=== PATIENT | female | born 1970 | race Caucasian/White ===

== ENCOUNTER 2018-01-09 15:11 | Observation (INO) | payer BC, OTHER ==
[~2018-01-09] VITALS: Ht 175.3 cm; Wt 63.6 kg
[~2018-01-09 15:11] MED LIST: ADDE10XR PO
[2018-01-09 15:12] VITALS: BP 171/88; PULSE 87; RESP 18; TEMP 97.5; O2SAT 99
--- NOTE | 2018-01-09 17:37 | PD ---
HPI Chief Complaint: Abdominal Pain Time Seen by Provider: 17:37 Travel History International Travel<30 days: No Contact w/Intl Traveler<30days: No Traveled to known affect area: No History of Present Illness HPI 47-year-old female presents to emergency department for evaluation of acute onset right lower quadrant pain around 2 PM today. Patient states it is sharp, stabbing, constant. Severe in nature. It does not radiate anywhere. It is worse with walking or movement. She has not been recently ill. No fever or chills. No diarrhea, nausea, or vomiting. She has no urinary symptoms to report. She has no other symptoms to report. 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) Hepatitis: No Hiatal Hernia: No Hypertension: Yes (IN PAST--NOT PRESENTLY BEING MEDICATED) Immune Disorder: No Kidney Stones: Yes (LITHROTRPSIE) Musculoskeletal: No Neurologic: No Psychiatric: Yes (ANXIETY) Reproductive: No Respiratory: No ?: Not : 2 Para: 2 Past Surgical History Abdominal Surgery: No AICD: No Arteriovenous Shunt: No Body Medical Devices: NONE Cardiac Surgery: No Section: Yes Ear Surgery: No Endocrine Surgery: No Eye Surgery: Yes (LIANA EYE SURGERY-REMMOVAL FAT PADS) Genitourinary Surgery: Yes (HX OF LITHOTRIPSY) Gynecologic Surgery: Yes (ENDOMETRIAL ABLATION 2007, CSECTION) Hysterectomy: Yes Insulin Pump: No Joint Replacement: No Oral Surgery: No Pacemaker: No Thoracic Surgery: No Other Surgery: Yes (C=SECTION 3/O2) Social History Alcohol Use: Yes (OCCASIONAL) Tobacco Use: No Substance Use: No Allergies-Medications (Allergen,Severity, Reaction): Coded Allergies: morphine (Verified Allergy, Severe, ITCING, 01/09/18) potassium iodide (Verified Allergy, Severe, ILEUS, 01/09/18) povidone-iodine (Verified Allergy, Severe, ILEUS, 01/09/18) sodium iodide (Verified Allergy, Severe, ILEOUS STOP, 01/09/18) diatrizoate meglumine (Verified Allergy, Intermediate, ileus, 01/09/18) iodixanol (Verified Allergy, Intermediate, ileus, 01/09/18) prednisone (Verified Allergy, Intermediate, SOB, 01/09/18) erythromycin base (Verified Adverse Reaction, Severe, Nausea/Vomiting, 01/09) iodine (Verified Adverse Reaction, Severe, ILEUS STOP, 01/09/18) sodium iodide (Verified Adverse Reaction, Severe, ILEUS, 01/09/18) gadobenic acid (Verified Adverse Reaction, Intermediate, ileus, 01/09/18) gadodiamide (Verified Adverse Reaction, Intermediate, ileus, 01/09/18) gadoteridol (Verified Adverse Reaction, Intermediate, ileus, 01/09/18) iohexol (Verified Adverse Reaction, Intermediate, ileus, 01/09/18) Reported Meds & Prescriptions Reported Meds & Active Scripts Active Reported Adderall (Amphetamine-Dextroamphetamine) 10 Mg Tab 10 Mg PO DAILY Avoid late evening doses. Space doses at least 4 to 6 hours if more than once/day dosing. Losartan (Losartan Potassium) 50 Mg Tab 50 Mg PO DAILY Review of Systems Except as stated in HPI: all other systems reviewed are Neg Physical Exam Narrative GENERAL: Well-nourished female patient in no acute distress. SKIN: Focused skin assessment warm/dry. HEAD: Atraumatic. Normocephalic. EYES: Pupils equal and round. No scleral icterus. No injection or drainage. ENT: No nasal bleeding or discharge. Mucous membranes pink and moist. NECK: Trachea midline. No JVD. CARDIOVASCULAR: Regular rate and rhythm. No murmur appreciated. RESPIRATORY: No accessory muscle use. Clear to auscultation. Breath sounds equal bilaterally. GASTROINTESTINAL: Abdomen soft, nondistended. Right lower quadrant tenderness to palpation with moderate guarding. Hepatic and splenic margins not palpable. MUSCULOSKELETAL: No obvious deformities. No clubbing. No cyanosis. No edema. NEUROLOGICAL: Awake and alert. No obvious cranial nerve deficits. Motor grossly within normal limits. Normal speech. PSYCHIATRIC: Appropriate mood and affect; insight and judgment normal. Data Data Last Documented VS Vital Signs Date Time Temp Pulse Resp B/P (MAP) Pulse Ox O2 Delivery O2 Flow Rate FiO2 01/09/18 22:22 16 01/09/18 20:59 98.5 70 143/89 (107) 99 Room Air Orders Orders Complete Blood Count With Diff (01/09/18 15:50) Comprehensive Metabolic Panel (01/09/18 15:50) Lipase (01/09/18 15:50) Prothrombin Time / Inr (Pt) (01/09/18 15:50) Act Partial Throm Time (Ptt) (01/09/18 15:50) Urinalysis - C+S If Indicated (01/09/18 15:50) Iv Access Insert/Monitor (01/09/18 17:39) Ondansetron Inj (Zofran Inj) (01/09/18 18:00) Sodium Chlor 0.9% 1000 Ml Inj (Ns 1000 M (01/09/18 18:00) Ct Abd/Pel W/O Iv Contrast (01/09/18 ) Hydromorphone Pf Inj (Dilaudid Pf Inj) (01/09/18 18:00) Oral Contrast - Adult (01/09/18 17:59) Diatrizoate Liq ( Gastroview Liq) (01/09/18 18:04) Diatrizoate Liq ( Gastromohamud Liq) (01/09/18 18:04) Urine Culture (01/09/18 18:15) Hydromorphone Pf Inj (Dilaudid Pf Inj) (01/09/18 19:45) Hydromorphone Pf Inj (Dilaudid Pf Inj) (01/09/18 20:30) Ketorolac Inj (Toradol Inj) (01/09/18 20:45) Admit To Inpatient (01/09/18 ) Vital Signs (Adult) Q4H (01/09/18 22:35) Activity Oob With Assistance (01/09/18 22:35) Diet Npo (01/10/18 Breakfast) Sodium Chlor 0.9% 1000 Ml Inj (Ns 1000 M (01/09/18 22:35) Sodium Chloride 0.9% Flush (Ns Flush) (01/09/18 22:45) Sodium Chloride 0.9% Flush (Ns Flush) (01/10/18 09:00) Ondansetron Inj (Zofran Inj) (01/09/18 22:45) Basic Metabolic Panel (Bmp) (01/10/18 06:00) Complete Blood Count With Diff (01/10/18 06:00) Scd Bilateral/Knee High SOFIA.BID (01/09/18 22:35) Alan Bilateral/Knee High SOFIA.QSHIFT (01/09/18 22:35) Naloxone Inj (Narcan Inj) (01/09/18 22:45) Magnesium Hydroxide Liq (Milk Of Magnesi (01/09/18 22:45) Sennosides (Senokot) (01/09/18 22:45) Bisacodyl Supp (Dulcolax Supp) (01/09/18 22:45) Inpatient Certification (01/09/18 ) Hydromorphone Pf Inj (Dilaudid Pf Inj) (01/09/18 23:00) Place In Observation (01/09/18 ) Consult General Surgery (01/09/18 ) Losartan (Cozaar) (01/10/18 09:00) Admit Order (Ed Use Only) (01/09/18 23:19) Labs Laboratory Tests Test 01/09/18 18:10 01/09/18 18:15 White Blood Count 8.1 TH/MM3 Red Blood Count 4.38 MIL/MM3 Hemoglobin 14.3 GM/DL Hematocrit 40.6 % Mean Corpuscular Volume 92.6 FL Mean Corpuscular Hemoglobin 32.6 PG Mean Corpuscular Hemoglobin Concent 35.2 % Red Cell Distribution Width 12.3 % Platelet Count 327 TH/MM3 Mean Platelet Volume 8.0 FL Neutrophils (%) (Auto) 67.5 % Lymphocytes (%) (Auto) 22.8 % Monocytes (%) (Auto) 8.7 % Eosinophils (%) (Auto) 0.4 % Basophils (%) (Auto) 0.6 % Neutrophils # (Auto) 5.5 TH/MM3 Lymphocytes # (Auto) 1.8 TH/MM3 Monocytes # (Auto) 0.7 TH/MM3 Eosinophils # (Auto) 0.0 TH/MM3 Basophils # (Auto) 0.0 TH/MM3 CBC Comment DIFF FINAL Differential Comment Prothrombin Time 10.5 SEC Prothromb Time International Ratio 1.0 RATIO Activated Partial Thromboplast Time 25.6 SEC Blood Urea Nitrogen 13 MG/DL Creatinine 0.77 MG/DL Random Glucose 86 MG/DL Total Protein 7.1 GM/DL Albumin 4.0 GM/DL Calcium Level 9.1 MG/DL Alkaline Phosphatase 95 U/L Aspartate Amino Transf (AST/SGOT) 14 U/L Alanine Aminotransferase (ALT/SGPT) 15 U/L Total Bilirubin 0.6 MG/DL Sodium Level 138 MEQ/L Potassium Level 4.2 MEQ/L Chloride Level 106 MEQ/L Carbon Dioxide Level 25.7 MEQ/L Anion Gap 6 MEQ/L Estimat Glomerular Filtration Rate 80 ML/MIN Lipase 144 U/L Urine Color LIGHT-YELLOW Urine Turbidity HAZY Urine pH 5.0 Urine Specific [place] 1.005 Urine Protein NEG mg/dL Urine Glucose (UA) NEG mg/dL Urine Ketones NEG mg/dL Urine Occult Blood NEG Urine Nitrite NEG Urine Bilirubin NEG Urine Urobilinogen LESS THAN 2.0 MG/DL Urine Leukocyte Esterase NEG Urine RBC 1 /hpf Urine WBC 1 /hpf Urine Squamous Epithelial Cells 15 /hpf Urine Bacteria MOD /hpf Urine Hyaline Casts 1 /lpf Urine Mucus FEW /lpf Microscopic Urinalysis Comment CULTURE INDICATED MDM Medical Decision Making Medical Screen Exam Complete: Yes Emergency Medical Condition: Yes Medical Record Reviewed: Yes Differential Diagnosis Appendicitis versus colitis versus cystitis versus ovarian cyst Narrative Course 47-year-old female presents to emergency department for evaluation of right lower quadrant pain, acute onset at 2 PM today. Physical exam is concerning for appendicitis. Patient is allergic to IV contrast. She is given oral contrast for examination. Lab work is ordered and patient is treated for pain. Laboratory Tests Test 01/09/18 18:10 01/09/18 18:15 White Blood Count 8.1 TH/MM3 Red Blood Count 4.38 MIL/MM3 Hemoglobin 14.3 GM/DL Hematocrit 40.6 % Mean Corpuscular Volume 92.6 FL Mean Corpuscular Hemoglobin 32.6 PG Mean Corpuscular Hemoglobin Concent 35.2 % Red Cell Distribution Width 12.3 % Platelet Count 327 TH/MM3 Mean Platelet Volume 8.0 FL Neutrophils (%) (Auto) 67.5 % Lymphocytes (%) (Auto) 22.8 % Monocytes (%) (Auto) 8.7 % Eosinophils (%) (Auto) 0.4 % Basophils (%) (Auto) 0.6 % Neutrophils # (Auto) 5.5 TH/MM3 Lymphocytes # (Auto) 1.8 TH/MM3 Monocytes # (Auto) 0.7 TH/MM3 Eosinophils # (Auto) 0.0 TH/MM3 Basophils # (Auto) 0.0 TH/MM3 CBC Comment DIFF FINAL Differential Comment Prothrombin Time 10.5 SEC Prothromb Time International Ratio 1.0 RATIO Activated Partial Thromboplast Time 25.6 SEC Blood Urea Nitrogen 13 MG/DL Creatinine 0.77 MG/DL Random Glucose 86 MG/DL Total Protein 7.1 GM/DL Albumin 4.0 GM/DL Calcium Level 9.1 MG/DL Alkaline Phosphatase 95 U/L Aspartate Amino Transf (AST/SGOT) 14 U/L Alanine Aminotransferase (ALT/SGPT) 15 U/L Total Bilirubin 0.6 MG/DL Sodium Level 138 MEQ/L Potassium Level 4.2 MEQ/L Chloride Level 106 MEQ/L Carbon Dioxide Level 25.7 MEQ/L Anion Gap 6 MEQ/L Estimat Glomerular Filtration Rate 80 ML/MIN Lipase 144 U/L Urine Color LIGHT-YELLOW Urine Turbidity HAZY Urine pH 5.0 Urine Specific [place] 1.005 Urine Protein NEG mg/dL Urine Glucose (UA) NEG mg/dL Urine Ketones NEG mg/dL Urine Occult Blood NEG Urine Nitrite NEG Urine Bilirubin NEG Urine Urobilinogen LESS THAN 2.0 MG/DL Urine Leukocyte Esterase NEG Urine RBC 1 /hpf Urine WBC 1 /hpf Urine Squamous Epithelial Cells 15 /hpf Urine Bacteria MOD /hpf Urine Hyaline Casts 1 /lpf Urine Mucus FEW /lpf Microscopic Urinalysis Comment CULTURE INDICATED Lab work is reviewed and without acute concern. Initial CT image was negative, but after discussing with my attending and his review of the film, he discussed with radiologist who with amended report of the abdomen and pelvis to reveal Early/mild acute appendicitis possible in the proper clinical setting. Otherwise negative CT of the abdomen and pelvis. I discussed with my attending who recommends observation admission. Patient will be admitted observation to [facility] for observation. Consult will need to be placed to Gen. surgery. Diagnosis Primary Impression: Unspecified appendicitis Qualified Codes: K35.80 - Unspecified acute appendicitis Admitting Information Admitting Physician Requests: Observation Condition: Stable HaywardDee membreno SARAH Jan 09, 2018 17:37
[2018-01-09] MEDS ORDERED: ADDE10 PO (18:00)
[2018-01-09] MEDS ORDERED: SODIUM CHLOR 0.9% 1000 ML INJ 1,000 ML IV ONE (18:00)
[2018-01-09] MEDS ORDERED: LOSA50TA PO (18:00)
[2018-01-09] MEDS ORDERED: HYDROmorphone HCL PF 2 MG/ML VIAL IV PUSH ONE ×2 (18:00→20:30)
[2018-01-09] MEDS ORDERED: ONDANSETRON HCL 4 MG/2 ML VIAL IV PUSH ONE (18:00)
[2018-01-09 18:02] VITALS: BP 150/83; PULSE 84; RESP 16; TEMP 97.8; O2SAT 98
[2018-01-09] MEDS ORDERED: DIATRIZOATE MEGLUM/DIATRIZOATE SOD 9 ML CUP ONE ×2 (18:04)
[2018-01-09 18:43] LABS: AUTOMATED NEUTROPHIL # 5.5 TH/MM3 (1.8-7.7); BASOPHIL % 0.6 % (0.0-2.0); EOSINOPHIL % 0.4 % (0.0-4.0); HEMATOCRIT 40.6 % (35.0-46.0); HEMOGLOBIN 14.3 GM/DL (11.6-15.3); LYMPH % 22.8 % (9.0-44.0); LYMPHOCYTE # 1.8 TH/MM3 (1.0-4.8); MEAN CELL VOLUME 92.6 FL (80.0-100.0); MEAN CORPUSCULAR HEMOGLOBIN 32.6 PG (27.0-34.0); MEAN CORPUSCULAR HGB CONC 35.2 % (32.0-36.0); MONO % 8.7 % (0.0-8.0); MONOCYTE # 0.7 TH/MM3 (0-0.9); NEUT % 67.5 % (16.0-70.0); PLATELET COUNT 327 TH/MM3 (150-450); RED BLOOD COUNT 4.38 MIL/MM3 (4.00-5.30); RED CELL DISTRIBUTION WIDTH 12.3 % (11.6-17.2); WHITE BLOOD COUNT 8.1 TH/MM3 (4.0-11.0)
[2018-01-09 18:54] LABS: AST (GOT) 14 U/L (15-37); BICARBONATE 25.7 MEQ/L (21.0-32.0); BLOOD UREA NITROGEN 13 MG/DL (7-18); CALCIUM 9.1 MG/DL (8.5-10.1); CHLORIDE 106 MEQ/L (98-107); CREATININE 0.77 MG/DL (0.50-1.00); GLOMERULAR FILTRATION RATE 80 ML/MIN (>89); GLUCOSE,RANDOM 86 MG/DL (74-106); SODIUM (NA) 138 MEQ/L (136-145)
[2018-01-09 18:55] LABS: PROTHROMBIN TIME - PATIENT 10.5 SEC (9.8-11.6)
[2018-01-09 18:58] LABS: ALKALINE PHOSPHATASE 95 U/L (45-117); ALT (GPT) 15 U/L (10-53); TOTAL BILIRUBIN ADULT 0.6 MG/DL (0.2-1.0); TOTAL PROTEIN 7.1 GM/DL (6.4-8.2)
[2018-01-09 19:06] LABS: BACTERIA, URINE MOD /hpf; BILIRUBIN, URINE NEG (NEG); BLOOD, URINE NEG (NEG); GLUCOSE,URINE NEG (NEG); HYALINE CAST, URINE 1 /lpf (RARE); KETONE, URINE NEG (NEG); MUCUS URINE FEW /lpf (OCC); NITRITE,URINE NEG (NEG); SQUAMOUS EPITHELIAL CELL URINE 15 /hpf (0-5); URINE COLOR LIGHT-YELLOW (YELLW/STRAW); URINE LEUKOCYTE ESTERASE NEG (NEG)
[2018-01-09] MEDS ORDERED: HYDROmorphone HCL PF 1 MG/ML VIAL IV PUSH ONE (19:45)
--- NOTE | 2018-01-09 20:30 | RADRPT ---
EXAM DATE/TIME: 01/09/2018 19:58 CORRECTION Corrected on: January 09, 2018; [place] COMPARISON: No previous studies available for comparison. INDICATIONS : Right sided abdomen pain. ORAL CONTRAST: Prescribed oral contrast ingested. RADIATION DOSE: 11.03 CTDIvol (mGy) MEDICAL HISTORY : Renal calculi. Hypertension. SURGICAL HISTORY : section. ENCOUNTER: Initial ACUITY: 1 day PAIN SCALE: 9/10 LOCATION: Right lower quadrant abdomen TECHNIQUE: Volumetric scanning of the abdomen and pelvis was performed. Using automated exposure control and ad justment of the mA and/or kV according to patient size, radiation dose was kept as low as reasonably achievable to obtain optimal diagnostic quality images. DICOM format image data is available electro nically for review and comparison. FINDINGS: LOWER LUNGS: 5 mm benign granuloma left lower lobe. LIVER: Homogeneous density without lesion. There is no dilation of the biliary tree. No calcified gallston es. SPLEEN: Normal size without lesion. PANCREAS: Within normal limits. KIDNEYS: Normal in size and shape. There is no mass, stone, or hydronephrosis. ADRENAL GLANDS: Within normal limits. VASCULAR: There is no aortic aneurysm. BOWEL/MESENTERY: The stomach, small bowel, and colon demonstrate no acute abnormality. There is no free intraperitone al air or fluid. The distal wall of the appendix is slightly thickened and indistinct, for example se arnold 2 image 71.. ABDOMINAL WALL: Within normal limits. RETROPERITONEUM: There is no lymphadenopathy. BLADDER: No wall thickening or mass. REPRODUCTIVE: Within normal limits. INGUINAL: There is no lymphadenopathy or hernia. MUSCULOSKELETAL: Within normal limits for patient age. CONCLUSION: Early/mild acute appendicitis possible in the proper clinical setting. Discussed with Dr. Leonard b y phone. Otherwise negative CT of the abdomen and pelvis. Landon Mcdonald MD on January 09, 2018 at 20:26 Board Certified Radiologist. This report was verified electronically. Landon Mcdonald MD on January 09, 2018 at 20:37 Board Certified Radiologist. This report was verified electronically.
[2018-01-09] MEDS ORDERED: KETOROLAC TROMETHAMINE 30 MG/ML (IVP) VIAL IV PUSH ONE (20:45)
[2018-01-09 20:59] VITALS: BP 143/89; PULSE 70; RESP 16; TEMP 98.5; O2SAT 99
[2018-01-09] MEDS ORDERED: SODIUM CHLORIDE 0.9% FLUSH 10 ML FLUSH IV FLUSH PRN (22:45)
[2018-01-09] MEDS ORDERED: SENNOSIDES 8.6 MG TAB PO PRN (22:45)
[2018-01-09] MEDS ORDERED: NALOXONE HCL 0.4 MG/ML AMP IV PUSH PRN (22:45)
[2018-01-09] MEDS ORDERED: MAGNESIUM HYDROXIDE SUSP 30 ML CUP PO PRN (22:45)
[2018-01-09] MEDS ORDERED: BISACODYL 10 MG SUPP RECTAL PRN (22:45)
[2018-01-09] MEDS ORDERED: ONDANSETRON HCL 4 MG/2 ML VIAL IVP PRN (22:45)
[2018-01-09] MEDS ORDERED: HYDROmorphone HCL PF 2 MG/ML VIAL IV PUSH PRN (23:00)
--- NOTE | 2018-01-09 23:18 | HHI.HP ---
[facility] Daren Perez M.D. Admission Diagnosis Diagnoses: Travel History International Travel<30 Days: No Contact w/Intl Traveler <30 Da: No Traveled to Known Affected Are: No History of Present Illness 47-year-old female with past medical history significant for hypertension and ADHD presents to the emergency department with chief complaint of sudden onset, stabbing right lower quadrant pain. The patient reports she was in her usual state of health while at work this afternoon when suddenly she had a stabbing pain through the right lower quadrant of her abdomen. She endorses associated nausea and dry heaves. Endorses fevers and chills. Positive diaphoresis. Denies dizziness, lightheadedness, shortness of breath or chest pain. Review of Systems Except as stated in HPI: all other systems reviewed are Neg Past Family Social History Past Medical History Hypertension ADHD Past Surgical History Partial hysterectomy Lithotripsy Reported Medications Reported Meds & Active Scripts Active Reported Adderall (Amphetamine-Dextroamphetamine) 10 Mg Tab 10 Mg PO DAILY Avoid late evening doses. Space doses at least 4 to 6 hours if more than once/day dosing. Losartan (Losartan Potassium) 50 Mg Tab 50 Mg PO DAILY Allergies: Coded Allergies: morphine (Verified Allergy, Severe, ITCING, 01/09/18) potassium iodide (Verified Allergy, Severe, ILEUS, 01/09/18) povidone-iodine (Verified Allergy, Severe, ILEUS, 01/09/18) sodium iodide (Verified Allergy, Severe, ILEOUS STOP, 01/09/18) diatrizoate meglumine (Verified Allergy, Intermediate, ileus, 01/09/18) iodixanol (Verified Allergy, Intermediate, ileus, 01/09/18) prednisone (Verified Allergy, Intermediate, SOB, 01/09/18) erythromycin base (Verified Adverse Reaction, Severe, Nausea/Vomiting, 01/09) iodine (Verified Adverse Reaction, Severe, ILEUS STOP, 01/09/18) sodium iodide (Verified Adverse Reaction, Severe, ILEUS, 01/09/18) gadobenic acid (Verified Adverse Reaction, Intermediate, ileus, 01/09/18) gadodiamide (Verified Adverse Reaction, Intermediate, ileus, 01/09/18) gadoteridol (Verified Adverse Reaction, Intermediate, ileus, 01/09/18) iohexol (Verified Adverse Reaction, Intermediate, ileus, 01/09/18) Family History Father with diabetes mellitus and coronary artery disease. Social History Occasional alcohol. Denies tobacco and illicit drugs. Physical Exam Vital Signs Vital Signs Date Time Temp Pulse Resp B/P (MAP) Pulse Ox O2 Delivery O2 Flow Rate FiO2 01/09/18 22:22 16 01/09/18 20:59 98.5 70 16 143/89 (107) 99 Room Air 01/09/18 18:02 16 01/09/18 18:02 97.8 84 16 150/83 (105) 98 Room Air 01/09/18 15:12 97.5 87 18 171/88 (115) 99 Room Air Physical Exam GENERAL: female sitting up in bed SKIN: No rashes, ecchymoses or lesions. Cool and dry. HEAD: Atraumatic. Normocephalic. No temporal or scalp tenderness. EYES: Pupils equal round and reactive. Extraocular motions intact. No scleral icterus. No injection or drainage. ENT: Nose without bleeding, purulent drainage or septal hematoma. Throat without erythema, tonsillar hypertrophy or exudate. Uvula midline. Airway patent. NECK: Trachea midline. No JVD or lymphadenopathy. Supple, nontender, no meningeal signs. CARDIOVASCULAR: Regular rate and rhythm without murmurs, gallops, or rubs. RESPIRATORY: Clear to auscultation. Breath sounds equal bilaterally. No wheezes , rales, or rhonchi. GASTROINTESTINAL: Abdomen soft, exquisitely tender to palpation in the right lower quadrant. No rebound tenderness. MUSCULOSKELETAL: Extremities without clubbing, cyanosis, or edema. No joint tenderness, effusion, or edema noted. No calf tenderness. Negative Rovsing sign. NEUROLOGICAL: Awake and alert. Cranial nerves II through XII intact. Motor and sensory grossly within normal limits. Normal speech. Laboratory Laboratory Tests Test 01/09/18 18:10 01/09/18 18:15 White Blood Count 8.1 Red Blood Count 4.38 Hemoglobin 14.3 Hematocrit 40.6 Mean Corpuscular Volume 92.6 Mean Corpuscular Hemoglobin 32.6 Mean Corpuscular Hemoglobin Concent 35.2 Red Cell Distribution Width 12.3 Platelet Count 327 Mean Platelet Volume 8.0 Neutrophils (%) (Auto) 67.5 Lymphocytes (%) (Auto) 22.8 Monocytes (%) (Auto) 8.7 Eosinophils (%) (Auto) 0.4 Basophils (%) (Auto) 0.6 Neutrophils # (Auto) 5.5 Lymphocytes # (Auto) 1.8 Monocytes # (Auto) 0.7 Eosinophils # (Auto) 0.0 Basophils # (Auto) 0.0 CBC Comment DIFF FINAL Differential Comment Prothrombin Time 10.5 Prothromb Time International Ratio 1.0 Activated Partial Thromboplast Time 25.6 Blood Urea Nitrogen 13 Creatinine 0.77 Random Glucose 86 Total Protein 7.1 Albumin 4.0 Calcium Level 9.1 Alkaline Phosphatase 95 Aspartate Amino Transf (AST/SGOT) 14 Alanine Aminotransferase (ALT/SGPT) 15 Total Bilirubin 0.6 Sodium Level 138 Potassium Level 4.2 Chloride Level 106 Carbon Dioxide Level 25.7 Anion Gap 6 Estimat Glomerular Filtration Rate 80 Lipase 144 Urine Color LIGHT-YELLOW Urine Turbidity HAZY Urine pH 5.0 Urine Specific [place] 1.005 Urine Protein NEG Urine Glucose (UA) NEG Urine Ketones NEG Urine Occult Blood NEG Urine Nitrite NEG Urine Bilirubin NEG Urine Urobilinogen LESS THAN 2.0 Urine Leukocyte Esterase NEG Urine RBC 1 Urine WBC 1 Urine Squamous Epithelial Cells 15 Urine Bacteria MOD Urine Hyaline Casts 1 Urine Mucus FEW Microscopic Urinalysis Comment CULTURE INDICATED Date/Time Source Procedure Growth Status 01/09/18 18:15 Urine Random Urine Urine Culture Pending Received Result Diagram: 01/09/18180901/09/181809 Caprini VTE Risk Assessment Caprini VTE Risk Assessment: No/Low Risk (score <= 1) Caprini Risk Assessment Model Point Value = 1 Point Value = 2 Point Value = 3 Point Value = 5 Age 41-60 Minor surgery BMI > 25 kg/m2 Swollen legs Varicose veins or History of unexplained or recurrent spontaneous Oral contraceptives or hormone replacement Sepsis (< 1 month) Serious lung disease, including pneumonia (< 1 month) Abnormal pulmonary function Acute myocardial infarction Congestive heart failure (< 1 month) History of inflammatory bowel disease Medical patient at bed rest Age 61-74 Arthroscopic surgery Major open surgery (> 45 min) Laparoscopic surgery (> 45 min) Malignancy Confined to bed (> 72 hours) Immobilizing plaster cast Central venous access Age >= 75 History of VTE Family history of VTE Factor V Leiden Prothrombin [id number] Lupus anticoagulant Anticardiolipin antibodies Elevated serum homocysteine Heparin-induced thrombocytopenia Other congenital or acquired thrombophilia Stroke (< 1 month) Elective arthroplasty Hip, pelvis, or leg fracture Acute spinal cord injury (< 1 month) Prophylaxis Regimen Total Risk Factor Score Risk Level Prophylaxis Regimen 0-1 Low Early ambulation 2 Moderate Order ONE of the following: *Sequential Compression Device (SCD) *Heparin 5000 units SQ BID 3-4 Higher Order ONE of the following medications: *Heparin 5000 units SQ TID *Enoxaparin/Lovenox 40 mg SQ daily (WT < 150 kg, CrCl > 30 mL/min) *Enoxaparin/Lovenox 30 mg SQ daily (WT < 150 kg, CrCl > 10-29 mL/min) *Enoxaparin/Lovenox 30 mg SQ BID (WT < 150 kg, CrCl > 30 mL/min) AND/OR *Sequential Compression Device (SCD) 5 or more Highest Order ONE of the following medications: *Heparin 5000 units SQ TID (Preferred with Epidurals) *Enoxaparin/Lovenox 40 mg SQ daily (WT < 150 kg, CrCl > 30 mL/min) *Enoxaparin/Lovenox 30 mg SQ daily (WT < 150 kg, CrCl > 10-29 mL/min) *Enoxaparin/Lovenox 30 mg SQ BID (WT < 150 kg, CrCl > 30 mL/min) AND *Sequential Compression Device (SCD) Assessment and Plan Assessment and Plan Assessment/plan: 1. Early appendicitis CT of the abdomen and pelvis significant for possible early acute appendicitis Dilaudid for pain Nothing by mouth General surgery consulted, appreciate recommendations 2. Hypertension Continue home losartan FEN Nothing by mouth NS at 100 cc/hour Electrolytes: Monitor and replete when necessary Ambulation Physician Certification 2 Midnight Certification Type: Admission for Inpatient Services Order for Inpatient Services The services are ordered in accordance with Medicare regulations or non- Medicare payer requirements, as applicable. In the case of services not specified as inpatient-only, they are appropriately provided as inpatient services in accordance with the 2-midnight benchmark. Estimated LOS (days): 2 2 days is the estimated time the patient will need to remain in the hospital, assuming treatment plan goals are met and no additional complications. Post-Hospital Plan: Not yet determined Roma Curiel MD Jan 09, 2018 23:18
[2018-01-09] MEDS: SODIUM CHLOR 0.9% 1000 ML INJ 1,000 ML IV SCH (23:44)
[2018-01-10] VITALS (7 sets, daily range): BP systolic 114–149; BP diastolic 63–85; PULSE 58–87; RESP 16–18; TEMP 96.1–97.4; O2SAT 98–100
[2018-01-10] MEDS ORDERED: LACTATED RINGER'S 1000 ML IV PRN (00:15)
[2018-01-10] MEDS ORDERED: SODIUM CHLORID 0.9% 500 ML IV PRN (00:15)
[2018-01-10] MEDS ORDERED: CHLORHEXIDINE GLUCONATE 2 % 1 PACK (2 CLOTHS) TOPICAL PRN (00:15)
[2018-01-10 07:03] LABS: AUTOMATED NEUTROPHIL # 2.4 TH/MM3 (1.8-7.7); BASOPHIL % 0.9 % (0.0-2.0); EOSINOPHIL # 0.1 TH/MM3 (0-0.4); EOSINOPHIL % 1.3 % (0.0-4.0); HEMATOCRIT 37.5 % (35.0-46.0); HEMOGLOBIN 13.4 GM/DL (11.6-15.3); LYMPH % 34.3 % (9.0-44.0); LYMPHOCYTE # 1.6 TH/MM3 (1.0-4.8); MEAN CELL VOLUME 92.1 FL (80.0-100.0); MEAN CORPUSCULAR HEMOGLOBIN 32.9 PG (27.0-34.0); MEAN CORPUSCULAR HGB CONC 35.7 % (32.0-36.0); MEAN PLATELET VOLUME 8.2 FL (7.0-11.0); MONO % 12.8 % (0.0-8.0); MONOCYTE # 0.6 TH/MM3 (0-0.9); NEUT % 50.7 % (16.0-70.0); PLATELET COUNT 281 TH/MM3 (150-450); RED BLOOD COUNT 4.07 MIL/MM3 (4.00-5.30); RED CELL DISTRIBUTION WIDTH 12.4 % (11.6-17.2); WHITE BLOOD COUNT 4.7 TH/MM3 (4.0-11.0)
[2018-01-10 07:30] LABS: BICARBONATE 23.2 MEQ/L (21.0-32.0); CALCIUM 8.3 MG/DL (8.5-10.1); CREATININE 0.65 MG/DL (0.50-1.00)
[2018-01-10] MEDS: SODIUM CHLOR 0.9% 1000 ML INJ 1,000 ML IV SCH (09:23)
[2018-01-10] MEDS: SODIUM CHLORIDE 0.9% FLUSH 10 ML FLUSH IV FLUSH SCH ×2 (09:26→21:00)
[2018-01-10] MEDS: PIPERACIL-TAZO 3.375 GM PREMIX 50 ML IV SCH ×2 (10:00→19:38)
[2018-01-10] MEDS: LOSARTAN 50 MG TAB PO SCH (10:25)
[2018-01-10] MEDS ORDERED: ACETAMINOPHEN 325 MG TAB PO PRN (10:45)
[2018-01-10] MEDS ORDERED: DEXTROSE 5%-LACTATED RING INJ 1,000 ML IV SCH (10:45)
[2018-01-10] MEDS ORDERED: POTASSIUM CHLOR 10 MEQ PREMIX 100 ML IV ONE (10:45)
--- NOTE | 2018-01-10 10:46 | HHI.PR ---
Subjective Remarks Patient says that right lower quadrant abdominal pain continues. She refuses any narcotics. Says she has a headache which is common when she misses meals. Objective Vital Signs Date Time Temp Pulse Resp B/P (MAP) Pulse Ox O2 Delivery O2 Flow Rate FiO2 01/10/18 08:00 96.1 72 18 123/77 (92) 98 01/10/18 04:40 97.4 71 16 121/73 (89) 99 01/10/18 00:10 96.9 66 17 149/84 (105) 100 01/10/18 00:03 01/09/18 22:22 16 01/09/18 20:59 98.5 70 16 143/89 (107) 99 Room Air 01/09/18 18:02 16 01/09/18 18:02 97.8 84 16 150/83 (105) 98 Room Air 01/09/18 15:12 97.5 87 18 171/88 (115) 99 Room Air I/O 01/09/18 01/09/18 01/09/18 01/10/18 01/10/18 01/10/18 07:00 15:00 23:00 07:00 15:00 23:00 Intake Total 1000 ml 0 ml Balance 1000 ml 0 ml Intake Oral 0 ml IV Total 1000 ml # Voids 1 # Bowel Movements 0 Result Diagram: 01/10/1860501/10/18 06 Objective Remarks GENERAL: Patient walking in room without difficulty. Appears uncomfortable. Alert and oriented 3. SKIN: Warm and dry. HEAD: Normocephalic. EYES: No scleral icterus. No injection or drainage. NECK: Supple, trachea midline. No JVD. CARDIOVASCULAR: Regular rate and rhythm without murmurs, gallops, or rubs. RESPIRATORY: Breath sounds equal bilaterally. No accessory muscle use. GASTROINTESTINAL: Abdomen soft. Right lower quadrant tenderness to palpation. MUSCULOSKELETAL: No cyanosis, or edema. BACK: Nontender without obvious deformity. No CVA tenderness. A/P Assessment and Plan //Early appendicitis CT of the abdomen and pelvis significant for possible early acute appendicitis Dilaudid for pain Nothing by mouth General surgery consulted, appreciate recommendations = We'll order by mouth Tylenol for after surgery. We'll start on fluids with dextrose. //Hypertension Continue home losartan FEN Nothing by mouth D5 LR at 100 cc/hour Electrolytes: Monitor and replete when necessary Ambulation Discharge Planning Pending surgical clearance. Priyank Brennan MD Jan 10, 2018 10:46
[2018-01-10] MEDS: ACETAMINOPHEN 1000 MG/100 ML 100 ML IV SCH ×2 (11:00→17:30)
--- NOTE | 2018-01-10 11:40 | PD.CONS ---
cc: Jeffery Mckenna MD [facility] Service General Surgery Consult Requested By Dr. Curiel Reason for Consult Early acute appendicitis Primary Care Physician Daren Perez M.D. History of Present Illness This is a 47-year-old female with a past medical history of hypertension, ADHD and kidney stones. The patient was working yesterday afternoon when she had a sudden onset of right lower quadrant abdominal pain. She reports the pain as stabbing-type pain 9 out of 10. She does report that she had some nausea, fevers or chills and was diaphoretic. The patient was brought to the Emergency Department where a CT abdomen and pelvis was obtained which is early acute appendicitis. She does have a normal white blood cell count. Her urinalysis was sent for culture. The patient has remained nothing by mouth. A General Surgery consultation has been requested for evaluation of laparoscopic appendectomy. Review of Systems Constitutional: COMPLAINS OF: Fever, Chills, DENIES: Fatigue, Dizziness, Change in appetite Endocrine: DENIES: Polydipsia, Polyuria, Polyphagia Eyes: DENIES: Diplopia, Eye inflammation Ears, nose, mouth, throat: DENIES: Hearing loss Respiratory: DENIES: Cough, Snoring Cardiovascular: DENIES: Chest pain, Palpitations Gastrointestinal: COMPLAINS OF: Abdominal pain, Nausea, DENIES: Vomiting Genitourinary: DENIES: Urinary incontinence Musculoskeletal: DENIES: Joint pain Integumentary: DENIES: Abnormal pigmentation Hematologic/lymphatic: DENIES: Bruising Immunologic/allergic: DENIES: Eczema Neurologic: DENIES: Abnormal gait, Headache Psychiatric: DENIES: Confusion, Mood changes, Depression Past Family Social History Past Medical History Hypertension ADHD Kidney stone Past Surgical History Laparoscopic partial hysterectomy Lithotripsy x1 Reported Medications Losartan Adderall Allergies: Coded Allergies: morphine (Verified Allergy, Severe, ITCING, 01/09/18) potassium iodide (Verified Allergy, Severe, ILEUS, 01/09/18) povidone-iodine (Verified Allergy, Severe, ILEUS, 01/09/18) sodium iodide (Verified Allergy, Severe, ILEOUS STOP, 01/09/18) diatrizoate meglumine (Verified Allergy, Intermediate, ileus, 01/09/18) iodixanol (Verified Allergy, Intermediate, ileus, 01/09/18) prednisone (Verified Allergy, Intermediate, SOB, 01/09/18) erythromycin base (Verified Adverse Reaction, Severe, Nausea/Vomiting, 01/09) iodine (Verified Adverse Reaction, Severe, ILEUS STOP, 01/09/18) sodium iodide (Verified Adverse Reaction, Severe, ILEUS, 01/09/18) gadobenic acid (Verified Adverse Reaction, Intermediate, ileus, 01/09/18) gadodiamide (Verified Adverse Reaction, Intermediate, ileus, 01/09/18) gadoteridol (Verified Adverse Reaction, Intermediate, ileus, 01/09/18) iohexol (Verified Adverse Reaction, Intermediate, ileus, 01/09/18) Active Ordered Medications Current Medications Medications (Trade) Dose Ordered Sig/Alayna Route Start Time Stop Time Status Last Admin Sodium Chloride 1,000 ml @ 100 mls/hr Q10H IV 01/09/18 22:35 01/10/18 09:23 (NS Flush) 2 ml UNSCH PRN IV FLUSH 01/09/18 22:45 (NS Flush) 2 ml BID IV FLUSH 01/10/18 09:00 01/10/18 09:26 (Zofran Inj) 4 mg Q6H PRN IVP 01/09/18 22:45 (Narcan Inj) 0.4 mg UNSCH PRN IV PUSH 01/09/18 22:45 (Milk Of Magnesia Liq) 30 ml Q12H PRN PO 01/09/18 22:45 (Senokot) 17.2 mg Q12H PRN PO 01/09/18 22:45 (Dulcolax Supp) 10 mg DAILY PRN RECTAL 01/09/18 22:45 (Dilaudid Pf Inj) 1 mg Q4H PRN IV PUSH 01/09/18 23:00 (Cozaar) 50 mg DAILY PO 01/10/18 09:00 Lactated Ringer's 1,000 ml @ 30 mls/hr Q24H PRN IV 01/10/18 00:15 01/13/18 00:14 Sodium Chloride 500 ml @ 30 mls/hr [id number] PRN IV 01/10/18 00:15 01/13/18 00:14 (Chlorhexidine 2% Cloth) 3 pack RIP SAW OPERATOR PRN TOPICAL 01/10/18 00:15 01/13/18 00:14 Piperacillin Sod/ Tazobactam Sod 50 ml @ 100 mls/hr Q8H IV 01/10/18 10:00 Acetaminophen 100 ml @ 400 mls/hr Q6H IV 01/10/18 10:00 01/10/18 13:00 Dextrose/Lactated Ringer's 1,000 ml @ 100 mls/hr Q10H IV 01/10/18 10:45 Potassium Chloride 100 ml @ 100 mls/hr BOLUS ONCE IV 01/10/18 10:45 01/10/18 11:44 (Tylenol) 650 mg Q4H PRN PO 01/10/18 10:45 Family History Noncontributory Social History Denies tobacco use Occasional EtOH use; not daily Denies illicit drug use Works for [employer]. Lives here locally. Had an 18 year old son and a 15 year old daughter. Physical Exam Vital Signs Vital Signs Date Time Temp Pulse Resp B/P (MAP) Pulse Ox O2 Delivery O2 Flow Rate FiO2 01/10/18 08:00 96.1 72 18 123/77 (92) 98 01/10/18 04:40 97.4 71 16 121/73 (89) 99 01/10/18 00:10 96.9 66 17 149/84 (105) 100 01/10/18 00:03 01/09/18 22:22 16 01/09/18 20:59 98.5 70 16 143/89 (107) 99 Room Air 01/09/18 18:02 16 01/09/18 18:02 97.8 84 16 150/83 (105) 98 Room Air 01/09/18 15:12 97.5 87 18 171/88 (115) 99 Room Air Physical Exam GENERAL: Very pleasant 47-year-old female resting in bed in no acute distress. SKIN: Warm and dry. HEAD: Atraumatic. Normocephalic. EYES: Pupils equal and round. No scleral icterus. No injection or drainage. ENT: No nasal bleeding or discharge. Mucous membranes pink and moist. NECK: Trachea midline. CARDIOVASCULAR: Regular rate and rhythm. RESPIRATORY: No accessory muscle use. Clear to auscultation. Breath sounds equal bilaterally. GASTROINTESTINAL: Abdomen soft, flat; non distended. RLQ tenderness with palpation. Small well healed scar just inferior to umbilicus. MUSCULOSKELETAL: Extremities without clubbing, cyanosis, or edema. No obvious deformities. NEUROLOGICAL: Awake and alert. No obvious cranial nerve deficits. Motor grossly within normal limits. Five out of 5 muscle strength in the arms and legs. Normal speech. PSYCHIATRIC: Appropriate mood and affect; insight and judgment normal. Laboratory Laboratory Tests Test 01/09/18 18:10 01/09/18 18:15 01/10/18 06:06 White Blood Count 8.1 4.7 Red Blood Count 4.38 4.07 Hemoglobin 14.3 13.4 Hematocrit 40.6 37.5 Mean Corpuscular Volume 92.6 92.1 Mean Corpuscular Hemoglobin 32.6 32.9 Mean Corpuscular Hemoglobin Concent 35.2 35.7 Red Cell Distribution Width 12.3 12.4 Platelet Count 327 281 Mean Platelet Volume 8.0 8.2 Neutrophils (%) (Auto) 67.5 50.7 Lymphocytes (%) (Auto) 22.8 34.3 Monocytes (%) (Auto) 8.7 12.8 Eosinophils (%) (Auto) 0.4 1.3 Basophils (%) (Auto) 0.6 0.9 Neutrophils # (Auto) 5.5 2.4 Lymphocytes # (Auto) 1.8 1.6 Monocytes # (Auto) 0.7 0.6 Eosinophils # (Auto) 0.0 0.1 Basophils # (Auto) 0.0 0.0 CBC Comment DIFF FINAL DIFF FINAL Differential Comment Prothrombin Time 10.5 Prothromb Time International Ratio 1.0 Activated Partial Thromboplast Time 25.6 Blood Urea Nitrogen 13 10 Creatinine 0.77 0.65 Random Glucose 86 88 Total Protein 7.1 Albumin 4.0 Calcium Level 9.1 8.3 Alkaline Phosphatase 95 Aspartate Amino Transf (AST/SGOT) 14 Alanine Aminotransferase (ALT/SGPT) 15 Total Bilirubin 0.6 Sodium Level 138 142 Potassium Level 4.2 3.7 Chloride Level 106 109 Carbon Dioxide Level 25.7 23.2 Anion Gap 6 10 Estimat Glomerular Filtration Rate 80 97 Lipase 144 Urine Color LIGHT-YELLOW Urine Turbidity HAZY Urine pH 5.0 Urine Specific [place] 1.005 Urine Protein NEG Urine Glucose (UA) NEG Urine Ketones NEG Urine Occult Blood NEG Urine Nitrite NEG Urine Bilirubin NEG Urine Urobilinogen LESS THAN 2.0 Urine Leukocyte Esterase NEG Urine RBC 1 Urine WBC 1 Urine Squamous Epithelial Cells 15 Urine Bacteria MOD Urine Hyaline Casts 1 Urine Mucus FEW Microscopic Urinalysis Comment CULTURE INDICATED Date/Time Source Procedure Growth Status 01/09/18 18:15 Urine Random Urine Urine Culture Pending Received Result Diagram: 01/10/18 0606 01/10/18 0606 Imaging Last 48 hours Impressions Abdomen/Pelvis CT 01/09/18 0000 Signed Impressions: Service Date/Time: January 19:58 - CONCLUSION: Early/mild acute appendicitis possible in the proper clinical setting. Discussed with Dr. Leonard by phone. Otherwise negative CT of the abdomen and pelvis. Landon Mcdonald MD Assessment and Plan Assessment and Plan 47 year old female with abdominal pain; CT shows early acute appendicitis -NPO -Obtain consents -Plan for OR intervention this afternoon -IVF -Added Zosyn -Need to follow up on UA -Procedure explained and all questions answered; discussed risks of procedure -Thank you for this consult; We will continue to follow PATIENT SEEN WITH [facility] WHO DOCUMENTED OUR VISIT. PERSISTENT RLQ ABDOMINAL PAIN WITH ABNORMAL CT SCAN. RECOMMEND LAPAROSCOPY AND APPENDECTOMY. PATIENT AGREES TO PROCEED. OR NOTIFIED. JEFFERY MCKENNA MD FACS Discussed Condition With Bernie Friedman Ms. Jan 10, 2018 11:40 Jeffery Mckenna MD Jan 13, 2018 14:07
[2018-01-10] MEDS ORDERED: BUPIVACAINE/EPINEPHRINE 0.5% PF 30 ML VIAL ONE (11:56)
[2018-01-10] MEDS ORDERED: KETOROLAC TROMETHAMINE 30 MG/ML (IVP) VIAL IV PUSH ONE (12:00)
[2018-01-10] MEDS ORDERED: LIDOCAINE HCL 1% PF 5 ML SYRINGE OTHER ONE (12:00)
[2018-01-10] MEDS ORDERED: NEOSTIGMINE 5 MG/5 ML SYRINGE IV PUSH ONE (12:00)
[2018-01-10] MEDS ORDERED: GLYCOPYRROLATE 1 MG/5 ML SYRINGE IV PUSH ONE (12:00)
[2018-01-10] MEDS ORDERED: ROCURONIUM INJ 50 MG/5 ML SYRINGE IV PUSH ONE (12:00)
[2018-01-10] MEDS ORDERED: PROPOFOL 200 MG/20 ML AMP IV ONE (12:00)
[2018-01-10] MEDS ORDERED: SUCCINYLCHOLINE CHLORIDE 200 MG/10 ML VIAL IV ONE (12:00)
[2018-01-10] MEDS ORDERED: ONDANSETRON HCL 4 MG/2 ML VIAL IV ONE (12:00)
[2018-01-10] MEDS ORDERED: DO NOT ADM ANY ANTICOAGULANT DRUGS PRN (14:11)
[2018-01-10] MEDS ORDERED: MIDAZOLAM HCL 2 MG/2 ML VIAL ONE (14:13)
[2018-01-10] MEDS ORDERED: NALOXONE HCL 0.4 MG/ML AMP IV PUSH PRN (15:00)
[2018-01-10] MEDS ORDERED: HYDROmorphone HCL PF 1 MG/ML VIAL IV PUSH PRN (15:00)
[2018-01-10] MEDS ORDERED: ACETAMINOPHEN/HYDROcodone 325 MG/5 MG TAB PO PRN (15:00)
[2018-01-10] MEDS ORDERED: ONDANSETRON HCL 4 MG/2 ML VIAL IV PUSH PRN (15:00)
[2018-01-10] MEDS ORDERED: Post-op Orders (for Pharmacy) XX ONE (15:00)
[2018-01-10] MEDS: KETOROLAC TROMETHAMINE 30 MG/ML (IVP) VIAL IVP PRN (19:38)
[2018-01-10] MEDS: PCA - TOTAL MG MORPHINE DELIVERED PER SHIFT SCH (22:00)
[2018-01-11 00:40] VITALS: BP 98/56; PULSE 73; RESP 16; TEMP 98; O2SAT 99
[2018-01-11] MEDS: PIPERACIL-TAZO 3.375 GM PREMIX 50 ML IV SCH ×2 (01:43→12:15)
[2018-01-11] MEDS: KETOROLAC TROMETHAMINE 30 MG/ML (IVP) VIAL IVP PRN (01:47)
[2018-01-11 04:25] VITALS: BP 119/69; PULSE 78; RESP 17; TEMP 97.3; O2SAT 99
[2018-01-11] MEDS: PCA - TOTAL MG MORPHINE DELIVERED PER SHIFT SCH (04:25)
[2018-01-11] MEDS: ACETAMINOPHEN 325 MG TAB PO PRN ×3 (04:54→12:11)
[2018-01-11 07:56] VITALS: BP 103/68; PULSE 69; RESP 17; TEMP 96.8; O2SAT 98
[2018-01-11 08:35] VITALS: O2SAT 99
[2018-01-11] MEDS: LOSARTAN 50 MG TAB PO SCH (08:48)
[2018-01-11] MEDS: SODIUM CHLORIDE 0.9% FLUSH 10 ML FLUSH IV FLUSH SCH (08:50)
--- NOTE | 2018-01-11 09:32 | HHI.PR ---
Subjective Remarks Follow up hypertension. Patient has no complaints at this time. She wants to go home today. Denies nausea/vomiting/dyspnea. Pain is well controlled. Objective Vitals Vital Signs Date Time Temp Pulse Resp B/P (MAP) Pulse Ox O2 Delivery O2 Flow Rate FiO2 01/11/18 07:56 96.8 69 17 103/68 (80) 98 01/11/18 04:25 97.3 78 17 119/69 (86) 99 01/11/18 00:40 98.0 73 16 98/56 (70) 99 01/10/18 20:25 97.3 87 16 114/63 (80) 98 01/10/18 19:55 99 21 01/10/18 16:00 96.3 58 17 114/72 (86) 100 01/10/18 14:45 97.8 56 14 124/76 (92) 98 Room Air 01/10/18 14:30 63 14 115/72 (86) 99 Room Air 01/10/18 14:02 97.7 62 14 129/77 (94) 98 Room Air 01/10/18 12:00 96.2 77 17 137/85 (102) 98 I/O 01/10/18 01/10/18 01/10/18 01/11/18 01/11/18 01/11/18 07:00 15:00 23:00 07:00 15:00 23:00 Intake Total 0 ml 1550 ml 480 ml 360 ml Output Total 10 ml Balance 0 ml 1540 ml 480 ml 360 ml Intake Oral 0 ml 480 ml 360 ml IV Total 1550 ml Output Estimated Blood Loss 10 ml # Voids 1 6 1 1 # Bowel Movements 0 0 0 Result Diagram: 01/10/18 0606 01/10/18 0606 Imaging Last Impressions Abdomen/Pelvis CT 01/09/18 0000 Signed Impressions: Service Date/Time: January 19:58 - CONCLUSION: Early/mild acute appendicitis possible in the proper clinical setting. Discussed with Dr. Leonard by phone. Otherwise negative CT of the abdomen and pelvis. Landon Mdconald MD Objective Remarks General: No acute distress. Heart: Regular rate and rhythm. No murmur. Lungs: Clear to auscultation bilaterally. No wheezes, rales, or rhonchi. Breathing is nonlabored. Abdomen: Soft, appropriately tender to palpation, nondistended. Extremities: No lower extremity edema. Psych: Alert and oriented. Procedures 01/10/18 laparoscopic appendectomy Urinary Catheter: No Vascular Central Line Catheter: No A/P Assessment and Plan 1. Appendicitis: Status post laparoscopic appendectomy. Management per general surgery. Pain control is adequate. Tolerating diet. 2. Hypertension: Continue losartan. 3. DVT prophylaxis: Ambulation. Discharge Planning Discharge home when cleared by general surgery, likely later today. Familia Melgar MD Jan 11, 2018 09:32
[2018-01-11] MEDS ORDERED: ACET325T15 PO (09:35)
--- NOTE | 2018-01-11 09:36 | HHI.DCPOC ---
Discharge Care Plan Diagnosis: (1) Hypertension (2) Acute appendicitis Goals to Promote Your Health * To prevent worsening of your condition and complications * To maintain your health at the optimal level Directions to Meet Your Goals Take your medications as prescribed Follow your dietary instruction Follow activity as directed Keep your appointments as scheduled Take your immunizations and boosters as scheduled If your symptoms worsen call your PCP, if no PCP go to Urgent Care Center or Emergency Room Smoking is Dangerous to Your Health. Avoid second hand smoke Call the 24-hour hour crisis hotline for domestic abuse at Familia Melgar MD Jan 11, 2018 09:36
[2018-01-11 09:57] LABS: AUTOMATED NEUTROPHIL # 4.4 TH/MM3 (1.8-7.7); BASOPHIL % 0.6 % (0.0-2.0); EOSINOPHIL # 0.1 TH/MM3 (0-0.4); EOSINOPHIL % 1.3 % (0.0-4.0); HEMATOCRIT 37.5 % (35.0-46.0); HEMOGLOBIN 13.3 GM/DL (11.6-15.3); LYMPH % 16.3 % (9.0-44.0); MEAN CELL VOLUME 93.1 FL (80.0-100.0); MEAN CORPUSCULAR HGB CONC 35.4 % (32.0-36.0); MONO % 11.4 % (0.0-8.0); MONOCYTE # 0.7 TH/MM3 (0-0.9); NEUT % 70.4 % (16.0-70.0); PLATELET COUNT 263 TH/MM3 (150-450); RED BLOOD COUNT 4.03 MIL/MM3 (4.00-5.30); RED CELL DISTRIBUTION WIDTH 12.1 % (11.6-17.2); WHITE BLOOD COUNT 6.3 TH/MM3 (4.0-11.0)
[2018-01-11 10:20] LABS: ALBUMIN 3.2 GM/DL (3.4-5.0); BICARBONATE 23.6 MEQ/L (21.0-32.0); CALCIUM 8.3 MG/DL (8.5-10.1); CREATININE 0.85 MG/DL (0.50-1.00); PHOSPHORUS 2.9 MG/DL (2.5-4.9)
[2018-01-11 11:41] VITALS: BP 116/66; PULSE 70; RESP 18; TEMP 96.2; O2SAT 99
--- NOTE | 2018-01-11 15:04 | HHI.PR ---
Subjective Subjective Notes pain controlled, tolerating PO Objective Vitals/I&O Vital Signs Date Time Temp Pulse Resp B/P (MAP) Pulse Ox O2 Delivery O2 Flow Rate FiO2 01/11/18 11:41 96.2 70 18 116/66 (83) 99 01/10/18 19:55 21 01/10/18 14:45 Room Air Labs Laboratory Tests Test 01/11/18 09:45 White Blood Count 6.3 Red Blood Count 4.03 Hemoglobin 13.3 Hematocrit 37.5 Mean Corpuscular Volume 93.1 Mean Corpuscular Hemoglobin 33.0 Mean Corpuscular Hemoglobin Concent 35.4 Red Cell Distribution Width 12.1 Platelet Count 263 Mean Platelet Volume 8.0 Neutrophils (%) (Auto) 70.4 Lymphocytes (%) (Auto) 16.3 Monocytes (%) (Auto) 11.4 Eosinophils (%) (Auto) 1.3 Basophils (%) (Auto) 0.6 Neutrophils # (Auto) 4.4 Lymphocytes # (Auto) 1.0 Monocytes # (Auto) 0.7 Eosinophils # (Auto) 0.1 Basophils # (Auto) 0.0 CBC Comment DIFF FINAL Differential Comment Blood Urea Nitrogen 8 Creatinine 0.85 Random Glucose 141 Albumin 3.2 Calcium Level 8.3 Phosphorus Level 2.9 Magnesium Level 2.0 Sodium Level 141 Potassium Level 3.8 Chloride Level 111 Carbon Dioxide Level 23.6 Anion Gap 6 Estimat Glomerular Filtration Rate 71 Date/Time Source Procedure Growth Status 01/09/18 18:15 Urine Random Urine Urine Culture - Final 10-50,000 CFU/ML MIXED GRAM POSITIVE ... Complete Radiology Last 48 hours Impressions Abdomen/Pelvis CT 01/09/18 0000 Signed Impressions: Service Date/Time: January 19:58 - CONCLUSION: Early/mild acute appendicitis possible in the proper clinical setting. Discussed with Dr. Leonard by phone. Otherwise negative CT of the abdomen and pelvis. Landon Mcdonald MD Cardiovascular: Regular Lungs: Clear Abdomen: Non-distended, Post-op tenderness Narrative Exam c/d/i incision Florencio Coronado MD Jan 11, 2018 15:04
--- NOTE | 2018-01-12 19:52 | MP ---
cc: JEFFERY MCKENNA M.D. DATE OF SURGERY: 01/10/2018. PREOPERATIVE DIAGNOSIS: Possible early acute appendicitis. POSTOPERATIVE DIAGNOSIS 1. Possible early acute appendicitis. 2. Possible ruptured ovarian cyst. OPERATIVE PROCEDURE PERFORMED: 1. Diagnostic laparoscopy. 2. Laparoscopic appendectomy. 3. Irrigation and drainage of bloody fluid from the pelvis. SURGEON: Jeffery Mckenna MD. ANESTHESIA: General endotracheal anesthesia. COMPLICATIONS: None. INDICATIONS FOR THE PROCEDURE: Ms. Ward is a pleasant 47-year-old female who presented to the emergency department with a 24-hour history of right lower quadrant abdominal pain. She was seen and evaluated by the nurse practitioner in the emergency department. She was admitted for observation to the medical service. The patient's pain persisted. She had a normal white count. She had a CT scan of the abdomen and pelvis that was concerning for possible early acute appendicitis as her appendix was slightly enlarged and thickened. Because her pain persisted, she was offered diagnostic laparoscopy possible appendectomy. She was agreeable. The operating room was notified and the patient was brought up. DESCRIPTION OF THE PROCEDURE IN DETAIL: The patient was identified and brought to the operating room and placed supine on the operating room table. After adequate general anesthesia was achieved, the abdomen was prepped and draped in the usual standard surgical fashion. The infraumbilical space was anesthetized with 0.25% Marcaine. Infraumbilical incision was made. Dissection was carried down through the subcutaneous tissue to the midline fascia. The midline fascia was then incised sharply. A finger was placed in the peritoneal cavity without difficulty. Blunt balloon trocar was inserted and the abdomen was insufflated to 15 mm using CO2 gas. Next, two 5 mm trocars were placed in the lower midline under direct vision after anesthetizing skin and subcutaneous tissue with 0.25% Marcaine. Attention was directed to the pelvis first where there was a small amount of bloody fluid present. This was irrigated out. Both ovaries were visualized and there was no obvious site of ovarian cyst rupture. Both ovaries were photographed. The patient previously had a hysterectomy. There was minimal scar tissue in the pelvis noted. Attention was now directed to the right lower quadrant where the appendix was seen. The appendix was noted be of normal size and color. It was slightly thickened in the midportion. I decided to go ahead and remove the appendix due to its thickening and the abnormal appearance on CT scan. Mesentery was taken down with the harmonic scalpel to the level of the cecal base. Two #0 PDS Endoloops were then placed on the appendiceal stump. Distal appendix was then ligated with and transected with the harmonic scalpel. Appendix was placed in the Endopouch bag and brought to the infraumbilical port. Next the abdominal cavity was briefly explored. Liver and gallbladder were noted be of normal size and color. Small bowel was noted be of normal size and color and actually peristalsing. Again we visualized the pelvis. The previous bloody fluid had been removed. Both ovaries were examined anteriorly and posteriorly and photographed. The round ligaments were seen exiting the internal ring. Again there was minimal scar tissue in the pelvis. The abdomen was then rinsed out with one liter of warm saline solution. The appendiceal stump was copiously irrigated and the Endoloops were tested and found be intact. Irrigation was then removed. Omentum was then placed over the cecal base. All ports were then removed under direct vision. Midline fascia was repaired with a 0 Vicryl in a [id number] fashion. Skin was closed with 4-0 Vicryl. The patient tolerated the procedure well and was awakened and brought to recovery in stable condition. MD KATELIN Zelaya/YONY /1:56 PM /7:41 PM
== END 2018-01-11 15:17 | disposition home or self-care (01) ==
LOC: NEPE 15:11 → NEDA 23:21 → N06B 01-10 00:03
PROVIDERS: ADMIT Family Medicine; ATTEND Family Medicine
DX: K35.80 Unspecified acute appendicitis (principal); I10 Essential (primary) hypertension; R61 Generalized hyperhidrosis; F90.9 Attention-deficit hyperactivity disorder, unspecified type; R51 Headache; F41.9 Anxiety disorder, unspecified; Z87.442 Personal history of urinary calculi
CPT/HCPCS: 00840; 44970; 74176; 80048; 80053; 80069; 81001; 83690; 83735; 85025; 85610; 85730; 87086; 88304; 96361; 96365; 96366; 96375; 96376; 99285; G0378; J0131; J0330; J1885; J2250; J2405; J2543; J2710; J3010; J3480; J7030; Q9963